=== PATIENT | female | born 1995 | race Caucasian/White ===

== ENCOUNTER 2022-09-28 15:25 | Day surgery (SDC) | payer BC ==
[2022-09-28 15:54] VITALS: BMI 34.5
[2022-09-28] MEDS ORDERED: hydrALAZINE 20 MG/ML VIAL SLOW IVP PRN (16:39)
== END 2022-09-28 16:30 | disposition home or self-care (01) ==
LOC: CSHLD/OP 15:25
PROVIDERS: ATTEND Obstetrics & Gynecology
DX: O47.03 False labor before 37 completed weeks of gestation, third trimester (principal); Z3A.29 29 weeks gestation of pregnancy
CPT/HCPCS: 99281

== ENCOUNTER 2022-12-02 20:13 | Day surgery (SDC) | payer BC, OTHER ==
[2022-12-02 20:44] VITALS: BMI 35.9
[2022-12-02] MEDS ORDERED: hydrALAZINE 20 MG/ML VIAL SLOW IVP PRN (21:22)
== END 2022-12-03 02:17 | disposition home or self-care (01) ==
LOC: CSHERS 20:13 → CSHLD/OP 12-03 02:17
PROVIDERS: ATTEND Obstetrics & Gynecology
DX: O47.1 False labor at or after 37 completed weeks of gestation (principal); O99.513 Diseases of the respiratory system complicating pregnancy, third trimester; J45.909 Unspecified asthma, uncomplicated; O99.013 Anemia complicating pregnancy, third trimester; D64.9 Anemia, unspecified; Z79.899 Other long term (current) drug therapy; Z3A.39 39 weeks gestation of pregnancy
CPT/HCPCS: 99283

== ENCOUNTER 2022-12-05 09:25 | Inpatient (IN) | payer BC, OTHER ==
[~2022-12-05 09:25] MED LIST: Bupivacaine 0.25% HCL 30 ML VIAL ONE
[2022-12-05] MEDS ORDERED: Promethazine HCl 25 MG/ML VIAL IM PRN ×2 (10:09→14:55)
[2022-12-05] MEDS ORDERED: HYDROcodone/Acetaminophen 5/325 mg Tablet PO PRN ×4 (10:09→23:10)
[2022-12-05] MEDS ORDERED: hydrALAZINE 20 MG/ML VIAL SLOW IVP PRN ×2 (10:09→23:10)
[2022-12-05] MEDS ORDERED: Misoprostol 200 MCG TAB PR PRN (10:09)
[2022-12-05] MEDS ORDERED: Lidocaine 1% (PF) 30 ML VIAL SC PRN (10:09)
[2022-12-05] MEDS ORDERED: Ibuprofen 800 MG TAB PO PRN (10:09)
[2022-12-05] MEDS ORDERED: Ondansetron PF 4 MG/2 ML Vial IVP PRN ×2 (10:09→14:55)
[2022-12-05] MEDS ORDERED: Butorphanol Tartrate 1 MG/ML VIAL SLOW IVP PRN (10:09)
[2022-12-05] MEDS ORDERED: NS w/ Oxytocin 30 units 500 ML IV SCH (10:15)
[2022-12-05 10:53] VITALS: BMI 36.1
[2022-12-05 10:54] LABS: Hemoglobin 10.3 g/dL (12.0-15.5); Mean Corpuscular HGB CONC 32.5 g/dL (32.0-36.0); Mean Corpuscular Hemoglobin 26.1 pg (27.0-33.0); Mean Corpuscular Volume 80.5 fl (81.6-98.3); Mean Platelet Volume 11.1 fl (7.4-10.4); Platelet Count 209 10x3/uL (150-450); RBC Distribution Width 15.3 % (11.5-14.5); Red Blood Cell (RBC) Count 3.94 10x6/uL (3.90-5.03); White Blood Cell (WBC) Count 8.4 10x3/uL (3.5-10.5)
[2022-12-05] MEDS: Lactated Ringer's 1,000 ML IV SCH ×2 (10:56→15:56)
[2022-12-05 11:39] LABS: Syphilis Antibody Nonreactive (Nonreactive); Syphilis Antibody Index 0.08 S/CO (<1.00 Non-Reactive)
[2022-12-05 11:43] LABS: HBSAg Index 0.16 S/CO (0-0.99); Hep B Surf Ag Non-Reactive S/CO (NonReactive)
[2022-12-05] MEDS ORDERED: Fentanyl 2 mcg/Bup 0.1% Cadd 100 ML ONE (14:15)
[2022-12-05] MEDS ORDERED: Naloxone HCl 0.4 mg/ml Vial IVP PRN ×2 (14:55)
[2022-12-05] MEDS ORDERED: Acetaminophen 325 MG TAB PO PRN (14:55)
[2022-12-05] MEDS ORDERED: Moisturizing Cream (Eucerin) 113 GM JAR TOP PRN (14:55)
[2022-12-05] MEDS ORDERED: diphenhydrAMINE 50 MG/ML VIAL IVP PRN (14:55)
[2022-12-05] MEDS ORDERED: ePHEDrine Sulfate 50 MG/10 ML VIAL SLOW IVP PRN (14:55)
[2022-12-05] MEDS ORDERED: Communication Order-Pharmacy FS SCH (15:00)
[2022-12-05] MEDS ORDERED: Fentanyl 2 mcg/Bupivacaine 0.1% Cassette 100 ML EPIDURAL SCH (15:00)
[2022-12-05] MEDS ORDERED: Lactated Ringer's 500 ML IV PRN (15:01)
[2022-12-05] MEDS ORDERED: Lanolin Ointment 7 GM TUBE TOP PRN (23:10)
[2022-12-05] MEDS ORDERED: Benzocaine-Menthol 82.5 ML CAN TOP PRN (23:10)
[2022-12-05] MEDS ORDERED: Milk Of Magnesia 30 ML UDCUP PO PRN (23:10)
[2022-12-05] MEDS ORDERED: Boostrix 0.5 ML (Tdap) VIAL (>/=7 yrs of age) IM ONE (23:10)
[2022-12-05] MEDS ORDERED: Bisacodyl 10 MG SUPP PR PRN (23:10)
[2022-12-05] MEDS ORDERED: Misoprostol 200 MCG TAB VAG PRN (23:10)
[2022-12-05] MEDS ORDERED: Docusate 100 MG CAP PO SCH (23:15)
[2022-12-06] MEDS: Ibuprofen 800 MG TAB PO SCH ×6 (01:18→21:14)
[2022-12-06] MEDS: Ferrous Sulfate 325 MG TAB PO SCH ×2 (08:54→16:14)
[2022-12-06] MEDS: Docusate 100 MG CAP PO SCH ×2 (09:24→21:12)
[2022-12-06] MEDS: Acetaminophen 325 MG TAB PO PRN ×2 (09:24→15:48)
[2022-12-06] MEDS: Prenatal Vitamin 1 TAB PO SCH (09:26)
[2022-12-07] MEDS: Ibuprofen 800 MG TAB PO SCH ×2 (05:33→12:54)
[2022-12-07] MEDS: Acetaminophen 325 MG TAB PO PRN (05:42)
[2022-12-07] MEDS: Ferrous Sulfate 325 MG TAB PO SCH (07:51)
[2022-12-07] MEDS: Docusate 100 MG CAP PO SCH (07:52)
[2022-12-07] MEDS: Prenatal Vitamin 1 TAB PO SCH (07:52)
[2022-12-07 07:55] VITALS: BP 101/57; TEMP 97.9
== END 2022-12-07 13:05 | disposition home or self-care (01) | DRG 807 ==
LOC: CSHLD 09:25 → CSHPP 22:35
PROVIDERS: ADMIT Obstetrics & Gynecology; ATTEND Obstetrics & Gynecology
PROC: 10E0XZZ Delivery of Products of Conception, External Approach (ICD-10-PCS; principal; 2022-12-05)
PROC: 0UQMXZZ Repair Vulva, External Approach (ICD-10-PCS; 2022-12-05)
DX: O99.214 Obesity complicating childbirth (principal); Z37.0 Single live birth; O70.0 First degree perineal laceration during delivery; Z98.890 Other specified postprocedural states; Z3A.39 39 weeks gestation of pregnancy; J30.2 Other seasonal allergic rhinitis; O99.52 Diseases of the respiratory system complicating childbirth; Z79.899 Other long term (current) drug therapy; E66.9 Obesity, unspecified
CPT/HCPCS: 36415; 51702; 85027; 86780; 86850; 86900; 86901; 87340; 99283; J2590; J7120; S0020